=== PATIENT | female | born 2000 | race Caucasian/White ===

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

== ENCOUNTER 2021-05-28 14:00 | Emergency (ER) | payer OTHER, MEDICAID ==
[~2021-05-28] VITALS: Ht 165.1 cm; Wt 61.2 kg
[~2021-05-28 14:00] MED LIST: CENTANY30 GM TOP; NOHOMEMEDICATIONS; TRIAMCINOLONE A80 G2 TOP
[2021-05-28] MEDS ORDERED: ZOLOFT 50 MG TA50 MG PO (14:10)
[2021-05-28] MEDS ORDERED: MEDROLDOSEPACK PO (14:31)
[2021-05-28 14:38] VITALS: BP 114/72
== END 2021-05-28 14:38 | disposition home or self-care (01) ==
LOC: M.ERS 14:00
DX: J02.8 Acute pharyngitis due to other specified organisms (principal); B97.89 Other viral agents as the cause of diseases classified elsewhere; F41.9 Anxiety disorder, unspecified; F32.9 Major depressive disorder, single episode, unspecified; F17.210 Nicotine dependence, cigarettes, uncomplicated; Z79.899 Other long term (current) drug therapy